=== PATIENT | female | born 1995 | race Caucasian/White ===

== ENCOUNTER 2021-08-16 10:43 | Emergency (ER) | payer BC, MEDICAID, SELFPAY ==
--- NOTE | ~2021-08-16 | CT_ITS ---
EXAMINATION: CT ABDOMEN AND PELVIS WITHOUT CONTRAST CLINICAL INFORMATION: Right lower quadrant pain COMPARISON: Previous pelvic ultrasound from earlier the same day TECHNIQUE: Multidetector volumetric imaging was performed from the superior aspect of the liver through the pubic symphysis. Sagittal and coronal reformatted images were obtained on the technologist's workstation. This CT examination was performed using dose optimization techniques as appropriate, variously including the following: *Automated exposure control *Adjustment of mA and/or kV according to patient size (this includes techniques or standardized protocols for targeted exams where dose is matched to indication/reason for exam; i.e. extremities or head) *Use of iterative reconstruction technique DLP: 532 mGy-cm FINDINGS: LUNG BASES: The visualized lung bases are unremarkable. LIVER, GALLBLADDER, AND BILIARY TREE: The liver is normal in size, shape, and attenuation. No focal hepatic lesion or biliary ductal dilatation is present. The gallbladder has been removed. PANCREAS: Unremarkable. SPLEEN: Unremarkable. ADRENAL GLANDS: Unremarkable. KIDNEYS AND URETERS: The kidneys are normal in size, shape, and attenuation. No hydronephrosis, hydroureter, or calculi seen. No perinephric stranding. BLADDER: Unremarkable. GASTROINTESTINAL TRACT: The small and large bowel are unremarkable. The appendix is unremarkable. ABDOMINAL WALL: There is a small umbilical hernia containing fat. LYMPH NODES: There is shotty small bowel mesentery lymphadenopathy. No enlarged lymph nodes are seen. There is no ascites. VASCULAR: Unremarkable. PELVIC VISCERA: Unremarkable. OSSEOUS STRUCTURES: Unremarkable. CT/CT abdomen pelvis wo con IMPRESSION: Unremarkable exam. Normal appendix. No stone or hydronephrosis.
--- NOTE | ~2021-08-16 | US_ITS ---
EXAMINATION: US PELVIS CLINICAL INFORMATION: Right lower quadrant pain. Age 26. LMP 07/31/2021. COMPARISON: None TECHNIQUE: Ultrasound of the pelvis is performed using both transabdominal and transvaginal transducers along with Doppler. Transvaginal imaging is performed due to inadequate visualization transabdominally. FINDINGS: Uterus: The uterus is anteverted and measures 7.5 x 3.7 x 4.1 cm. The double wall endometrial thickness is normal at 7 mm. The uterus is smooth in contour and has normal myometrial echogenicity. No visible fibroid. There is an incidental 0.7 cm nabothian cyst in the cervix. Adnexa: Both ovaries are visualized. There is normal color flow and low resistance waveforms to the adnexa. There is no ovarian torsion. There is no pelvic ascites or fluid collection. Right ovary measures 2.1 x 1.7 x 1.8 cm. Left ovary measures 2.8 x 1.7 x 2.6 cm. Incidental dominant follicle within left ovary measures 1.3 cm. US/US pelvic ovarian doppler IMPRESSION: No adnexal mass or pelvic ascites. No torsion.
--- NOTE | ~2021-08-16 | US_ITS ---
EXAMINATION: US PELVIS CLINICAL INFORMATION: Right lower quadrant pain. Age 26. LMP 07/31/2021. COMPARISON: None TECHNIQUE: Ultrasound of the pelvis is performed using both transabdominal and transvaginal transducers along with Doppler. Transvaginal imaging is performed due to inadequate visualization transabdominally. FINDINGS: Uterus: The uterus is anteverted and measures 7.5 x 3.7 x 4.1 cm. The double wall endometrial thickness is normal at 7 mm. The uterus is smooth in contour and has normal myometrial echogenicity. No visible fibroid. There is an incidental 0.7 cm nabothian cyst in the cervix. Adnexa: Both ovaries are visualized. There is normal color flow and low resistance waveforms to the adnexa. There is no ovarian torsion. There is no pelvic ascites or fluid collection. Right ovary measures 2.1 x 1.7 x 1.8 cm. Left ovary measures 2.8 x 1.7 x 2.6 cm. Incidental dominant follicle within left ovary measures 1.3 cm. US/US transvaginal IMPRESSION: No adnexal mass or pelvic ascites. No torsion.
[2021-08-16 10:55] VITALS: BP 134/83; PULSE 78; RESP 16; TEMP 36.8; O2SAT 98; BMI 25.6
--- NOTE | 2021-08-16 11:06 | ED.ABDPAIN ---
HPI - Abdominal Pain General Chief Complaint: Abdominal Pain Stated Complaint: abd pain Time Seen by Provider: 08/16/21 11:04 Source: patient Mode of arrival: EMS Limitations: no limitations History of Present Illness MD elicited complaint: abdominal pain Pertinent past history: kidney stones and other (ovarian cysts) Onset (ago): minute(s) (just [employer]) Pain Consistency: constant Location: RLQ Severity: severe Quality: stabbing Radiation: none Migration to: no migration Exacerbating factors: movement Relieving factors: nothing Context: history of similar episodes (feels like ruptured ovarian cyst) Associated symptoms: nausea and vomiting Treatments prior to arrival: other (IVF and zofran with EMS) Related Data Previous Rx's Medication Instructions Recorded cyclobenzaprine 10 mg tablet 10 mg PO TID PRN #14 tab 08/16/21 ibuprofen 600 mg tablet 600 mg PO Q6H PRN #30 tab 08/16/21 ondansetron 4 mg disintegrating 4 mg PO Q8H PRN #20 tab 08/16/21 tablet Allergies Allergy/AdvReac Type Severity Reaction Status Date / Time No Known Allergies Allergy Verified 08/16/21 10:59 Review of Systems Review of Systems Constitutional : No Weight loss, No Fever, No Chills ENT/Mouth : No sore throat, No Rhinorrhea Eyes: No Swelling, No Redness Cardiovascular : No Chest Pain, No SOB, NoEdema Respiratory : No Cough, No Sputum, No Wheezing Gastrointestinal : Positive Nausea, Positive Vomiting, no Diarrhea, positive abdominal Pain, No Hematochezia, No Melena Genitourinary : No Dysuria, No Urinary Frequency, No Hematuria, No Urgency Musculoskeletal : No joint pain, No Myalgias, No Joint Swelling Skin : No Skin Lesions, No rash Neuro : No Weakness, No Numbness, No Dizziness, No Headache Psych : No Anxiety/Panic, No Depression Heme/Lymph: No Bruising, No Lymphadenopathy Endocrine : No Polyuria, No Polydipsia All other systems reviewed and are negative. Physical Exam Vital Signs: Vital Signs: Last Vital Signs Temp 98.2 F 08/16/21 10:55 Pulse 78 08/16/21 10:55 Resp 16 08/16/21 11:18 BP 134/83 08/16/21 10:55 Pulse Ox 98 08/16/21 10:55 Body Mass Index 25.6 Appearance: Alert. Oriented X3. Anxious in pain acute distress. Eyes: Pupils equal, round and reactive to light. ENT: Pharynx normal. Neck: Normal inspection. Neck supple. CVS: Normal heart rate and rhythm. Pulses normal. Respiratory: No respiratory distress. Breath sounds normal. Abdomen: Soft and moderate RLQ ttp no rebound mild vol guarding Skin: Skin warm and dry. Normal skin color. Normal skin turgor. Extremities: No lower extremity edema. No calf ttp Neuro: Oriented X 3. No motor deficit. No sensory deficit. Course Course Course Narrative: patient still c/o pain - toradol ordered, UA negative, US negative, CT scan for renal colic ordered. negative findings on CT scan and US today, labs and UA normal, has frequent visits to other EDs for similar lower abdominal pain - no acute findings, can be DC at this time MDM - Abdominal Pain MDM Narrative Medical decision making narrative: 26 yo female hx of kidney stones and ovarian cysts comes in with c/o RLQ pain that was abrupt in onset feels like ruptured cyst - will obtain labs, UA, hcg, US to evaluate for ovarian cyst/rupture/torsion. IV morphine for pain. Dispo per results and findings. Lab Data Result diagrams: 08/16/21 11:32 08/16/21 11:32 Labs: Lab Results 08/16/21 08/16/21 08/16/21 Range/Units 11:32 11:32 11:32 WBC 7.5 (4.8-10.8) X10*3/uL RBC 3.76 L (4.20-5.50) X10*6/uL Hgb 11.1 L (12.0-16.0) g/dl Hct 34.1 L (37-47) % MCV 90.7 (80-98) fL MCH 29.5 (27.0-33.0) pg MCHC 32.6 (31.0-35.0) g/dl RDW 13.4 (11.0-16.0) % Plt Count 199 (160-400) X10*3/uL MPV 9.6 (9.4-12.3) fL Immature Gran % (Auto) 0.3 (0.0-0.4) % Neut % (Auto) 57.9 (45-73) % Lymph % (Auto) 34.0 (20-40) % [place] % (Auto) 5.2 (2-11) % Eos % (Auto) 1.9 (0-4) % Baso % (Auto) 0.7 (0-2) % Lymph # (Auto) 2.6 (1.2-4.9) X10*3/uL [place] # (Auto) 0.4 (0.1-1.2) X10*3/uL Eos # (Auto) 0.1 (0.0-0.4) X10*3/uL Baso # (Auto) 0.1 (0.0-0.2) X10*3/uL Abs Immat Gran (auto) 0.02 (0.00-0.03) X10*3/uL Absolute Neuts (auto) 4.4 (2.0-8.3) X10*3/uL Absolute Nucleated RBC 0.000 (0.0-0.012) X10*3/uL Nucleated RBC % (auto) 0.0 (0.0-0.2) /100WBC Sodium 139 (135-145) mmol/L Potassium 4.2 (3.3-5.1) mmol/L Chloride 110 H (96-108) mmol/L Carbon Dioxide 24 (22-29) mmol/L Anion Gap 9 L (12-20) BUN 8 L (9-16) mg/dL Creatinine 0.61 (0.5-1.4) mg/dL Estim Creat Clear Calc 123.4 Estimated GFR > 60 Random Glucose 88 (60-115) mg/dL Calcium 8.7 (8.4-10.2) mg/dL Magnesium 1.8 (1.6-2.6) mg/dL Total Bilirubin 0.5 (0.0-1.0) mg/dL Direct Bilirubin 0.2 (0.0-0.5) mg/dL AST 25 (5-31) U/L ALT 27 (0-31) U/L Alkaline Phosphatase 94 (39-117) U/L Total Protein 6.9 (6.5-8.0) g/dL Albumin 4.0 (3.5-5.0) g/dL Lipase 26 (8-78) U/L Beta HCG, Quant < 2 mIU/mL Urine Color Urine Appearance Urine pH (5.0-8.0) Ur Specific [place] (1.005-1.025) Urine Protein (NEG-TRACE) MG/DL Urine Glucose (UA) (NEG) MG/DL Urine Ketones (NEG) MG/DL Urine Blood (NEG) Urine Nitrite (NEG) Ur Leukocyte Esterase (NEG) Urine RBC (0) /HPF Urine WBC (0-4) /HPF Ur Squamous Epith Cells /LPF Urine Bacteria /LPF COVID-19 (TI) (Negative) COVID-19 Clin Com 08/16/21 08/16/21 Range/Units 11:32 11:33 WBC (4.8-10.8) X10*3/uL RBC (4.20-5.50) X10*6/uL Hgb (12.0-16.0) g/dl Hct (37-47) % MCV (80-98) fL MCH (27.0-33.0) pg MCHC (31.0-35.0) g/dl RDW (11.0-16.0) % Plt Count (160-400) X10*3/uL MPV (9.4-12.3) fL Immature Gran % (Auto) (0.0-0.4) % Neut % (Auto) (45-73) % Lymph % (Auto) (20-40) % [place] % (Auto) (2-11) % Eos % (Auto) (0-4) % Baso % (Auto) (0-2) % Lymph # (Auto) (1.2-4.9) X10*3/uL [place] # (Auto) (0.1-1.2) X10*3/uL Eos # (Auto) (0.0-0.4) X10*3/uL Baso # (Auto) (0.0-0.2) X10*3/uL Abs Immat Gran (auto) (0.00-0.03) X10*3/uL Absolute Neuts (auto) (2.0-8.3) X10*3/uL Absolute Nucleated RBC (0.0-0.012) X10*3/uL Nucleated RBC % (auto) (0.0-0.2) /100WBC Sodium (135-145) mmol/L Potassium (3.3-5.1) mmol/L Chloride (96-108) mmol/L Carbon Dioxide (22-29) mmol/L Anion Gap (12-20) BUN (9-16) mg/dL Creatinine (0.5-1.4) mg/dL Estim Creat Clear Calc Estimated GFR Random Glucose (60-115) mg/dL Calcium (8.4-10.2) mg/dL Magnesium (1.6-2.6) mg/dL Total Bilirubin (0.0-1.0) mg/dL Direct Bilirubin (0.0-0.5) mg/dL AST (5-31) U/L ALT (0-31) U/L Alkaline Phosphatase (39-117) U/L Total Protein (6.5-8.0) g/dL Albumin (3.5-5.0) g/dL Lipase (8-78) U/L Beta HCG, Quant mIU/mL Urine Color YELLOW Urine Appearance CLEAR Urine pH 6.0 (5.0-8.0) Ur Specific [place] <= 1.005 (1.005-1.025) Urine Protein NEG (NEG-TRACE) MG/DL Urine Glucose (UA) NEG (NEG) MG/DL Urine Ketones NEG (NEG) MG/DL Urine Blood TRACE (NEG) Urine Nitrite NEG (NEG) Ur Leukocyte Esterase NEG (NEG) Urine RBC 0-2 (0) /HPF Urine WBC 0 (0-4) /HPF Ur Squamous Epith Cells TRACE /LPF Urine Bacteria NONE /LPF COVID-19 (TI) Negative (Negative) COVID-19 Clin Com See Note Discharge Plan Discharge Clinical Impression: Abdominal pain Qualifiers: Abdominal location: right lower quadrant Qualified Code(s): R10.31 - Right lower quadrant pain Patient Disposition: Home, Self-Care Instructions: Abdominal Pain (ED) Additional Instructions: return to ED for any worsening symptoms or concerns your labs and urine were normal Ultrasound of ovaries are normal - no cysts, no free fluid CT scan normal appendix, no stones noted Prescriptions: New cyclobenzaprine 10 mg tablet 10 mg PO TID PRN (Reason: muscle spasm) Qty: 14 RF: 0 ibuprofen 600 mg tablet 600 mg PO Q6H PRN (Reason: pain) Qty: 30 RF: 0 ondansetron 4 mg tablet,disintegrating 4 mg PO Q8H PRN (Reason: nausea and vomiting) Qty: 20 RF: 0 Referrals: Praveen Bravo MD [Primary Care Provider] - 2 days (if not better) Stand Alone Forms: Work/School Release [facility] Past Medical History Attestation statement: The following information was validated with the patient. Medical History Kidney stones Ovarian cyst Surgical History Hx of cholecystectomy Social History Social History (Updated 08/16/21 @ 11:07 by Pricila Mcknight DO) Alcohol intake: never Patient Tobacco Use Status: Never used Tobacco Smoked in Last 30 Days: No Use of substances other than those prescribed or required for medical reasons: No Advance Directives: No Advance Directives Information Provided: Yes
[2021-08-16 11:18] VITALS: RESP 16
[2021-08-16] MEDS: Morphine Sulfate 4 MG/ML CARTRIDGE IVPUSH (11:18)
[2021-08-16] MEDS: 0.9 % Sodium Chloride 1,000 ML 999 ML IVCONT (11:19)
[2021-08-16 11:41] LABS: MANUAL DIFF FLAG NO
[2021-08-16 11:45] LABS: Basophils Absolute Auto 0.1 X10*3/uL (0.0-0.2); Basophils Percent Auto 0.7 % (0-2); Eosinophils Absolute Auto 0.1 X10*3/uL (0.0-0.4); Eosinophils Percent Auto 1.9 % (0-4); Hematocrit 34.1 % (37-47); Hemoglobin 11.1 g/dl (12.0-16.0); Imm Gran Abs Auto 0.02 X10*3/uL (0.00-0.03); Imm Gran Pct Auto 0.3 % (0.0-0.4); Lymphocytes Absolute Auto 2.6 X10*3/uL (1.2-4.9); Mean Corpuscular HGB Conc 32.6 g/dl (31.0-35.0); Mean Corpuscular Hemoglobin 29.5 pg (27.0-33.0); Mean Corpuscular Volume 90.7 fL (80-98); Mean Platelet Volume 9.6 fL (9.4-12.3); Monocytes Absolute Auto 0.4 X10*3/uL (0.1-1.2); Monocytes Percent Auto 5.2 % (2-11); Neutrophils Absolute Auto 4.4 X10*3/uL (2.0-8.3); Neutrophils Percent Auto 57.9 % (45-73); Platelet Count 199 X10*3/uL (160-400); Red Blood Count 3.76 X10*6/uL (4.20-5.50); Red Cell Distribution Width 13.4 % (11.0-16.0); White Blood Count 7.5 X10*3/uL (4.8-10.8)
[2021-08-16 11:46] LABS: Appearance Urine CLEAR; Color Urine YELLOW; Glucose Urine UA NEG (NEG); Leukocyte Esterase Urine NEG (NEG); Nitrite Urine NEG (NEG); Specific Gravity - Urine <= 1.005 (1.005-1.025); UACC Culture Trigger NO; Urine Blood TRACE (NEG); Urine Ketones NEG (NEG); Urine Protein NEG (NEG-TRACE)
[2021-08-16 12:01] LABS: Alanine Aminotransferase 27 U/L (0-31); Alkaline Phosphatase 94 U/L (39-117); Anion Gap 9 (12-20); Aspartate Amino Transferase 25 U/L (5-31); Bilirubin Direct 0.2 mg/dL (0.0-0.5); Bilirubin Total 0.5 mg/dL (0.0-1.0); Blood Urea Nitrogen 8 mg/dL (9-16); Calcium 8.7 mg/dL (8.4-10.2); Carbon Dioxide 24 mmol/L (22-29); Chloride 110 mmol/L (96-108); Creatinine Clr Calc Pharmacy 123.4; Estimated Glomerular Filt Rate > 60; Glucose Random 88 mg/dL (60-115); Lipase 26 U/L (8-78); Magnesium 1.8 mg/dL (1.6-2.6); Potassium 4.2 mmol/L (3.3-5.1); Sodium 139 mmol/L (135-145); Total Protein 6.9 g/dL (6.5-8.0)
[2021-08-16 12:06] LABS: HCG Quantitative < 2 mIU/mL
[2021-08-16 12:08] LABS: RBC Urine 0-2 /HPF (0); Squamous Epithelial Cell Urine TRACE /LPF; WBC Urine 0 /HPF (0-4)
[2021-08-16 12:08] LABS: IDNOW Serial# 9DD0AD1C
[2021-08-16 12:09] LABS: COVID-19 Test Negative (Negative)
[2021-08-16] MEDS: Ketorolac Tromethamine 15 MG/ML VIAL 30 MG IVPUSH (12:29)
== END 2021-08-16 13:42 | disposition home or self-care (01) ==
PROVIDERS: Emergency Provider Emergency Medicine; PCP Family Medicine
DX: R10.31 Right lower quadrant pain (principal); N83.209 Unspecified ovarian cyst, unspecified side; Z87.442 Personal history of urinary calculi; Z20.822 Contact with and (suspected) exposure to COVID-19
CPT/HCPCS: 36415; 74176; 76830; 80048; 80076; 81001; 83690; 83735; 84702; 85025; 87635; 93975; 96361; 96374; 96375; 99284; J1885; J2270

== ENCOUNTER 2024-08-22 18:49 | Emergency (ER) | payer MEDICAID, SELFPAY ==
--- NOTE | ~2024-08-22 | US_ITS ---
EXAMINATION: US PELVIS CLINICAL INFORMATION: Pelvic pain rule out ovarian torsion on the right status post total hysterectomy COMPARISON: #[id number] TECHNIQUE: Transabdominal images performed on the patient was not able to tolerate transvaginal exam FINDINGS: Uterus: Surgically absent due to endometriosis Adnexa: Both ovaries are visualized. There is normal color flow to the adnexa. There is no ovarian torsion. There is no pelvic ascites or fluid collection. Right ovary measures 2.7 x 1.8 x 2.1 cm. With a volume of 5.3 mL Left ovary measures 2.8 x 1.7 x 2.6 cm. With a volume of 3.5 mL There are multiple ovarian cysts, evaluation is limited due to transabdominal technique US/US pelvic complete IMPRESSION: Limited evaluation of the transabdominal technique. Multiple ovarian cysts Electronically signed by: Saranya Armas MD 08/22/2024 08:59 PM EDT
--- NOTE | ~2024-08-22 | US_ITS ---
EXAMINATION: US PELVIS CLINICAL INFORMATION: Pelvic pain rule out ovarian torsion on the right status post total hysterectomy COMPARISON: #[id number] TECHNIQUE: Transabdominal images performed on the patient was not able to tolerate transvaginal exam FINDINGS: Uterus: Surgically absent due to endometriosis Adnexa: Both ovaries are visualized. There is normal color flow to the adnexa. There is no ovarian torsion. There is no pelvic ascites or fluid collection. Right ovary measures 2.7 x 1.8 x 2.1 cm. With a volume of 5.3 mL Left ovary measures 2.8 x 1.7 x 2.6 cm. With a volume of 3.5 mL There are multiple ovarian cysts, evaluation is limited due to transabdominal technique US/US pelvic ovarian doppler IMPRESSION: Limited evaluation of the transabdominal technique. Multiple ovarian cysts Electronically signed by: Saranya Armas MD 08/22/2024 08:59 PM EDT
[2024-08-22 19:10] VITALS: BP 152/101; PULSE 111; RESP 20; TEMP 36.6; O2SAT 95; BMI 26.2
--- NOTE | 2024-08-22 19:11 | ED_ITS ---
HPI - General Adult General Stated complaint: abd pain h/o ovarian cysts Related Data Previous Rx's ?Medication ?Instructions ?Recorded cyclobenzaprine 10 mg tablet 10 mg PO TID PRN muscle spasm #14 08/16/21 tabs ibuprofen 600 mg tablet 600 mg PO Q6H PRN pain #30 tabs 08/16/21 ondansetron 4 mg disintegrating 4 mg PO Q8H PRN nausea and 08/16/21 tablet vomiting #20 tabs Allergies Allergy/AdvReac Type Severity Reaction Status Date / Time sertraline [From Zoloft] AdvReac Unknown Verified 08/22/24 19:12 ON LICENSE OF [facility] Past Medical History Medical History Kidney stones Ovarian cyst Surgical History Hx of cholecystectomy Social History Social History (Updated 08/16/21 @ 11:07 by Tasha Mcknight DO) Alcohol intake: never Patient Tobacco Use Status: Never used Tobacco Course Course Course Narrative: RME, this is a rapid medical exam performed by Alexander Boyd please refer to primary provider for complete H&P- 29 year old female presents for evaluation of RLQ abdominal pain. Symptoms started a week ago, but worsened significantly yseterday. She reports a long history of ovarian cysts including a removal last month. Plan for labs and pelvis ultrasound, UA Discharge Plan Discharge Prescriptions: No Action cyclobenzaprine 10 mg tablet 10 mg PO TID PRN (Reason: muscle spasm) Qty: 14 0RF ibuprofen 600 mg tablet 600 mg PO Q6H PRN (Reason: pain) Qty: 30 0RF ondansetron 4 mg tablet,disintegrating 4 mg PO Q8H PRN (Reason: nausea and vomiting) Qty: 20 0RF Print Language: Monegasque
[2024-08-22 19:21] LABS: MANUAL DIFF FLAG NO
[2024-08-22 19:22] LABS: Basophils Absolute Auto 0.1 X10*3/uL (0.0-0.2); Basophils Percent Auto 0.7 % (0-2); Eosinophils Absolute Auto 0.2 X10*3/uL (0.0-0.4); Eosinophils Percent Auto 2.5 % (0-4); Hemoglobin 10.6 g/dl (12.0-16.0); Imm Gran Abs Auto 0.01 X10*3/uL (0.00-0.03); Imm Gran Pct Auto 0.1 % (0.0-0.4); Lymphocytes Absolute Auto 2.4 X10*3/uL (1.2-4.9); Lymphocytes Percent Auto 35.2 % (20-40); Mean Corpuscular HGB Conc 33.1 g/dl (31.0-35.0); Mean Corpuscular Hemoglobin 29.7 pg (27.0-33.0); Mean Corpuscular Volume 89.6 fL (80.0-98.0); Mean Platelet Volume 8.9 fL (9.4-12.3); Monocytes Absolute Auto 0.5 X10*3/uL (0.1-1.2); Monocytes Percent Auto 6.7 % (2-11); Neutrophils Absolute Auto 3.7 x10*3/uL (2.0-8.3); Neutrophils Percent Auto 54.8 % (45-73); Platelet Count 198 X10*3/uL (160-400); Red Blood Count 3.57 X10*6/uL (4.20-5.50); Red Cell Distribution Width 13.7 % (11.0-16.0); White Blood Count 6.8 X10*3/uL (4.8-10.8)
[2024-08-22 19:41] LABS: Alanine Aminotransferase 41 U/L (0-31); Albumin Level 4.3 g/dL (3.5-5.0); Alkaline Phosphatase 106 U/L (39-117); Anion Gap 16 (12-20); Aspartate Amino Transferase 46 U/L (5-31); Bilirubin Total 0.2 mg/dL (0.0-1.0); Blood Urea Nitrogen 9 mg/dL (9-16); Calcium 9.4 mg/dL (8.4-10.2); Carbon Dioxide 26 mmol/L (22-29); Chloride 103 mmol/L (96-108); Creatinine Clr Calc Pharmacy 101.4; Estimated Glomerular Filt Rate > 60; Glucose Random 86 mg/dL (60-115); Lipase 20 U/L (8-78); Sodium 141 mmol/L (135-145); Total Protein 7.3 g/dL (6.5-8.0)
[2024-08-22 19:47] LABS: HCG Quantitative < 2 mIU/mL
== END 2024-08-22 22:39 | disposition left against medical advice (07) ==
PROVIDERS: Physician Assistant; Emergency Provider Emergency Medicine; PCP Family Medicine
DX: R10.31 Right lower quadrant pain (principal); R10.2 Pelvic and perineal pain; N83.209 Unspecified ovarian cyst, unspecified side; Z90.710 Acquired absence of both cervix and uterus
CPT/HCPCS: 36415; 76856; 80053; 83690; 84702; 85025; 93975; 99281